=== PATIENT | female | born 1945 | race Caucasian/White ===

== ENCOUNTER → 2020-08-30 13:09 | Outpatient (CLI) | payer MEDICARE, SELFPAY ==
--- NOTE | 2020-08-30 | DI.RAD.S_ITS ---
PROCEDURE: FL BARIUM SWALLOW W SPEECH INDICATIONS: Epigastric pain COMPARISON: None. TECHNIQUE: Examination was conducted in conjunction with speech pathology per standard protocol. In the lateral projection, filming was performed of the patient swallowing. AP projection filming may also be performed with patient swallowing. COMPARISON: FINDINGS: Function: The oral preparatory phase appears normal, with proper containment. The subsequent oral propulsive phase, pharyngeal phase, and esophageal phase of swallowing also appear mildly delayed with all proffered substances. There is mild residue present. There was silent laryngeal penetration and trace aspiration of residue. Morphology: No cricopharyngeal bar is identified. No cervical esophageal webs. No Zenker's diverticulum. No strictures. IMPRESSION: Trace laryngeal penetration and aspiration as above. Dictated by: Chuckie Noriega M.D. on 08/30/2020 at 15:20 Approved by: Chuckie Noriega M.D. on 08/30/2020 at 15:23
--- NOTE | 2020-08-31 10:13 | ST.SWALLOW ---
Visit Care Team Role Provider Type Ricardo Pearson DO Attending Provider Non-Staff Primary Care Provider Referring Provider Specialty: Family Practice Address: [address] [place] [address], [phone] Email: Modified Barium Swallow Study INTELLIGENCE OFFICER Modified Barium Swallow Study Start: 08/30/20 16:52 Freq: Status: Active Protocol: Document 08/30/20 16:52 LNK (Rec: 08/30/20 17:05 LNK [id number]) Modified Barium Swallow Study Total Time Visit Start Time 13:30 Visit Stop Time 14:00 Total Visit Minutes 30 Referral Referring Physician Reason for Referral pain when swallowing Setting Setting Outpatient Care Patient Information Identification Type Name,Date of Patient History Pt was seen for a MBSS at the referral of Dr Pearson. She has a medical history of MS and she reported that she is noticing more and more MS symptoms lately. Pt c/o feeling a catch in her throat with solids and liquids,. She c/o pain in the mid-chest area that can feel severe. She and her described an episode about 2 months ago during which the pt was eating a sandwich, experienced significant pain in her mid chest area and ended up in urgent care. Subjective Observations pt was seated in the fluoroscopy chair. Instructions and procedure were described for the pt, who indicated she understood and agreed to proceed. Patient Positioning Position View Lateral Imaging Lateral View Textures Administered Trials Presented Thin Liquid via Spoon,Thin Liquid via Cup,Pudding Thick Liquid via Spoon,Regular Textures,Barium Tablet Oral Phase Source: MBSIMP (TM) (C) Bolus Specific Scoring Grid Lip Closure No Impairment (WNL) Tongue Control During Bolus Hold No Impairment (WNL) Bolus Prep/Mastication No Impairment (WNL) Bolus Transport/Lingual Motion Minimal Impairment A/P Lingual Propulsion Delay Only with the 11mm barium tablet. Required 2 tries Oral Residue WFL Nasal Regurgitation No Additional Oral Phase Observations overall, the pt's OME was unremarkable. DDK was WNL, dentition was natural with all teeth observed. ROM and strength were WNL Pharyngeal Phase Source: MBSIMP (TM) (C) Bolus Specific Scoring Grid Delayed Initiation of Pharyngeal Swallow Yes: Premature spillage to the valeculla pre-swallow Soft Palate Elevation No Impairment (WNL) Tongue Base Strength/Range of Motion WFL Residue Along the Tongue Base No Laryngeal Elevation WFL Anterior Hyoid Movement WFL Epiglottic Range of Motion WFL Vallecular Residue Yes: Greatest residue following pudding thick trial Clearance of Vallecular Residue Mild Impairment Laryngeal Vestibular Closure WFL Pharyngeal Stripping Wave WFL Posterior Pharyngeal Wall Residue Yes: Cleared with subsequent swallows Clearance of Posterior Pharyngeal Wall WFL Residue Upper Esophageal Sphincter Opening WFL Residue in the Pyriform Sinuses Yes Clearance of Residue in the Pyriform WFL Sinuses Esophageal Clearance Upright Position WFL Pharyngoesophageal Backflow Observed No Additional Pharyngeal Phase Observations Pt's pharyngeal phase of her swallowing was also determined to be WFL. Minimal residual was observed. There was one instance following the pudding thick trial, there was more pooling in the valeculla. The residual and the pt's secretions penetrated the laryngeal vestibule with trace tracheal aspiration observed. Pt did not reflexively cough. A/P View Esophageal Observations Esophageal Function A cricopharyngeal bar was observed. Cervical osteophytes were also noted with alteration of the bolus flow without impeding the flow. Approximately mid-assessment, the pt reported that the mid- chest pain she reported earlier, was building at her mid-chest area. A screening scan of the esophagus in the lateral position, noted a significant amount of contrast remaining in her upper esophagus. Clinical Impressions Dysphagia Type esophageal dysphagia Findings Overall, the pt presented with oropharyngeal swallow within functional limits. There was 1 instance of trace laryngeal penetration and aspiration of thick pharyngeal residue observed. Other than that instance, pt's oropharyngeal swallow phases were WFL. The esophageal phase of the pt's swallowing was screened with significant esophageal residue observed. A referral for a GI consult is recommended. Rehabilitation Potential Good Patient Appropriate for Therapy Yes: Swallow therapy to increase lingual strength and airway protection Recommendations Diet Liquids Order Thin Diet Order Dysphagia Advanced Medication Recommendation Whole in Carrier,Crushed in Carrier Comments A softer diet is recommended to ease flow through esophagus Additional Dietary Needs Chopped Food,1:1 Supervision, Encourage to Self-Feed Aspiration Precautions Recommended Precautions Upright at 90 Degrees, Alternate Liquids/Solids, Frequent Rest Periods,Small Bites/Sips,Effortful Swallow, Selena Maneuver Additional Precautions Alternate liquids and solids to assist flow through esophagus Treatment Plan Therapy Recommendations Outpatient Speech Therapy,Oral Motor Exercises,Lingual Exercises,Base of Tongue Exercises,Compensatory Strategy Education Recommended Referrals Primary Care Physician,GI Consult Compensatory Strategies Recommendations Sitting Upright (90 deg),Small Bites and Sips,Alternate Liquids/Solids Additional Recommendations/Comments Given the pt's dx of MS, this MBSS will serve as a baseline for the pt's swallowing.
== END ==
PROVIDERS: PCP Family Medicine; Referring Provider Family Medicine; Visit Provider Family Medicine
DX: R10.13 Epigastric pain (principal)
CPT/HCPCS: 74230; 92611

== ENCOUNTER 2020-11-09 09:30 | Outpatient (RCR) | payer MEDICARE, SELFPAY ==
--- NOTE | 2020-10-19 16:26 | ST.OPIE ---
Visit Care Team Role Provider Type Ricardo Pearson DO Attending Provider Non-Staff Primary Care Provider Referring Provider Specialty: Family Practice Address: [address] [place] [address], [phone] Email: Speech-Language Pathology Initial Evaluation NURSE ESTHETICIAN Clinical Swallow Evaluation Start: 10/19/20 13:30 Freq: Status: Active Protocol: Document 10/19/20 13:31 LNK (Rec: 10/19/20 14:10 LNK [id number]) Clinical Swallow Evaluation Session Time Visit Start Time 09:30 Visit Stop Time 10:30 Total Visit Minutes 60 Visit Information Visit Number 1 Plan of Care Dates 10/19/20-01/18/21 Referral Referring Provider Crystal Pearson MD Reason for Referral dysphagia Setting Assessment Location Outpatient Care Visit Type Note Type Initial evaluation Next Note Type Next Note Type Treatment Note Patient Information Identification Type Name,Date of History Pt was seen for a MBSS at the referral of Dr Pearson. She has a medical history of MS and she reported that she is noticing more and more MS symptoms lately. Pt c/o feeling a catch in her throat with solids and liquids,. She c/o pain in the mid-chest area that can feel severe. She and her described an episode about 2 months ago during which the pt was eating a sandwich, experienced significant pain in her mid chest area and ended up in urgent care. An MBSS was conducted with the results indicating the pt presented with oropharyngeal swallow within functional limits. There was 1 instance of trace laryngeal penetration and aspiration of thick pharyngeal residue observed. Other than that instance, pt's oropharyngeal swallow phases were WFL. The esophageal phase of the pt's swallowing was screened with significant esophageal residue observed. A referral for a GI consult is recommended. [ End ] Subjective Observations Pt attended the appointment with her , who provided a majority of pt's medical history. Reported by Patient Other Symptoms Food gets stuck Current Diet Regular,Thin liquids Objective Assessment Mental Status Alert,Responsive,Cooperative Oral Integrity WFL Dentition Within normal limits Lip Function Within normal limits Tongue Function Within normal limits Jaw Function Within normal limits Comment Informal observation of the pt 's OM skills indicated they were WFL. Speech was 100% intelligible. Food and Liquid Trials Results No PO trials were completed. A computer generated video of a normal swallow was reviewed with the pt and . Anatomy and physiology of the swallow were described with major structures targeted. The pt's MBS was then reviewed with pt and her . Noted and described epiglottal inversion, which was effective , but incomplete. Swallow therapy was recommended to increase strength of the tongue base thereby improving epiglottal inversion. Because the pt has MS, this MBSS can serve as a baseline, if needed in the future. Additionally, the exercises will be beneficial to the pt as well. Findings Swallowing Function Comments mild oropharyngeal dysphagia. See MBS 08/31/20 Severity of Swallow Impairment Within functional limits Contributing Factors to Swallow Impaired oral-pharyngeal Impairment transport Based on Family support Impact on Safety and Functioning No limitations Recommendations Instrumental Assessment No Swallowing Treatment Yes Frequency every 3 weeks Recommended Solids Regular Recommended Liquids Honey Safety Precautions/Swallowing Remain upright (90 degrees) Recommendations during all oral intake,Small bites and sips when eating, Slow rate; swallow between bites Medication Recommendations As Tolerated Referrals Recommended Referrals Gastroenterology Education Patient/Caregiver Education Described results of evaluation,Patient expressed understanding of evaluation, Patient expressed agreement with goals & treatment plans, Family/caregivers expressed understanding of evaluation, Patient expressed understanding of safety precautions,Family/caregivers expressed understanding of safety precautions Goals Short-term Goals 1) Linguapharyngeal and base of tongue exercises will be completed by pt in at home as directed (20 repetitions of each x 4-5 times per day). 2) Pt will be referred to GI specialist for esophageal dysmotility.
--- NOTE | 2020-10-19 16:31 | ST.OPPOC ---
Physical, Occupational & Speech Therapy [facility] Visit Care Team Role Provider Type Ricardo Pearson DO Attending Provider Non-Staff Primary Care Provider Referring Provider Address: [address] [place] [address], [phone] Speech Pathology Plan of Care Plan of Care Dates 10/19/20-01/18/21 Patient History Pt was seen for a MBSS at the referral of Dr Pearson. She has a medical history of MS and she reported that she is noticing more and more MS sympomology lately. Pt c/o feeling a catch in her throat with solids and liquids,. She c/o pain in the midchest area that can feel severe. She and her described an episode about 2 months ago during which the pt was eating a sandwich, experienced significant pain in her mid chest area and ended up in urgent care. An MBSS was conducted with the results indicating the pt presented with oropharyngeal swallow within functional limits. There was 1 instance of trace laryngeal penetration and aspiration of thick pharyngeal residue observed . Other than that instance, pt's oropharyngeal swallow phases were WFL. The esophageal phase of the pt's swallowing was screened with significant esophageal residue observed. A referral for a GI consult is recommended. [ End ] Electronically Signed by: COREY Lopes 10/19/20 3230 Please Sign and Return: I have reviewed this Plan of Care and certify that the skilled therapy services above are required to meet the patient?s needs. Physician Signature Date Printed Name and Credentials Clinical Instructor Signature Printed Name and Credentials
--- NOTE | 2020-11-09 10:20 | ST.IPDYTX ---
Visit Care Team Role Provider Type Ricardo Pearson DO Attending Provider Non-Staff Primary Care Provider Referring Provider Specialty: Family Practice Address: [address] [place] [address], [phone] Email: NARCOTICS AND VICE DETECTIVE Dysphagia Treatment NARCOTICS AND VICE DETECTIVE Dysphagia Treatment Start: 10/19/20 13:30 Freq: Status: Active Protocol: Document 11/09/20 10:11 LNK (Rec: 11/09/20 10:19 LNK [email or web address]) Dysphagia Treatment Session Time Visit Start Time 09:30 Visit Stop Time 10:10 Total Visit Minutes 40 Visit Information Visit Number 2 Plan of Care Dates 10/19/20-01/18/21 Setting Assessment Location Outpatient Care Visit Type Note Type Treatment Note Next Note Type Next Note Type Treatment Note Patient Information Identification Type Name,Date of Subjective Observations Pt arrived with her . Pt's noted that Abimbola is tied and has been getting confused at times. Treatment Treatment Activities No PO trials as pt was dizzy and was not interested in trials. Reviewed base of tongue exercises with the pt. She is currently doing the Musako and the Shaker exercises once daily. Pt demonstrated the exercises successfully. Questions regarding frequency of HEP, which ideally should be 3-5x/ day or as tolerated. Pt reported that she has not had a coughing/choking episode since her last visit to this clinic 3 weeks ago. Assessment Patient Response to Treatment Good Rehab Potential Good Diet Recommendations Recommendations Continue Current Diet Treatment Plan Appropriate for Continued Therapy Yes: 1-2 more sessions every three weeks Dysphagia Goals 1) Linguapharyngeal and base of tongue exercises will be completed by pt in at home as directed (20 repetitions of each x 4-5 times per day). 2) Pt will be referred to GI specialist for esophageal dysmotility.
--- NOTE | 2020-12-21 15:10 | ST.IPDYTX ---
Visit Care Team Role Provider Type Ricardo Pearson DO Attending Provider Non-Staff Primary Care Provider Referring Provider Specialty: Family Practice Address: [address] [place] [address], [phone] Email: TIE TAPE MACHINE OPERATOR Dysphagia Treatment TIE TAPE MACHINE OPERATOR Dysphagia Treatment Start: 10/19/20 13:30 Freq: Status: Active Protocol: Document 12/21/20 15:07 LNK (Rec: 12/21/20 15:10 LNK [email or web address]) Dysphagia Treatment Setting Assessment Location Outpatient Care Visit Type Note Type Discharge Summary Patient Information Subjective Observations Pt arrived with her . Pt's noted that Abimbola is tied and has been getting confused at times. Treatment Treatment Activities trials. Reviewed base of tongue exercises with the pt. She is currently doing the Musako and the Shaker exercises once daily. Pt demonstrated the exercises successfully. Questions regarding frequency of HEP, which ideally should be 3-5x/ day or as tolerated. Pt reported that she has not had a coughing/choking episode since her last visit to this clinic 3 weeks ago. [ End ] Treatment Plan Therapy Recommendations Pt has not been seen for therapy since last session. She called and cancelled her final appointment. No more appointments scheduled. Will d /c at this time
== END 2021-03-08 09:39 ==
LOC: SP 09:30
PROVIDERS: PCP Family Medicine; Referring Provider Family Medicine; Visit Provider Family Medicine
DX: R13.10 Dysphagia, unspecified (principal)
CPT/HCPCS: 92526; 92610